=== PATIENT | male | born 1955 | race Caucasian/White ===

== ENCOUNTER 2021-07-27 18:13 | Emergency (ER) | payer OTHER, SELFPAY ==
--- NOTE | 2021-07-27 18:33 | ED_ITS ---
HPI - Alcohol General Chief Complaint: ETOH/Substance Use <GEOVANI Duran Last Filed: 07/28/21 01:32> Stated Complaint: etoh,requesting detox <GEOVANI Duran Last Filed: 07/28/21 01:32> Time Seen by Provider: 07/27/21 18:22 <GEOVANI Duran Last Filed: 07/28/21 01:32> Source: patient and EMS <GEOVANI Duran Last Filed: 07/28/21 01:32> Mode of arrival: EMS <GEOVANI Duran Last Filed: 07/28/21 01:32> History of Present Illness HPI narrative: 65-year-old male with past medical history of ETOH abuse BIBA for ETOH intoxication, EMS called by roommates for concern of patient's ETOH consumption, & need for detox. Patient requesting detox at this time. 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 Denies illicit drugs. Denies SI/HI. Denies recent fall/injury, abdominal pain, nausea/vomiting, CP/SOB <GEOVANI Duran Last Filed: 07/28/21 01:32> MD complaint: alcohol intoxication <GEOVANI Duran Last Filed: 07/28/21 01:32> Related Data Home Medications: Previous Rx's Medication Instructions Recorded amlodipine 5 mg tablet 5 mg PO DAILY #14 tab 07/28/21 <GEOVANI Duran Last Filed: 07/28/21 01:32> Allergies/Adverse Reactions: Allergies Allergy/AdvReac Type Severity Reaction Status Date / Time No Known Allergies Allergy Verified 07/27/21 18:37 <GEOVANI Duran Last Filed: 07/28/21 01:32> Review of Systems Review of Systems: Constitutional: No Fever ENT/Mouth: No Ear Pain, No Nasal Congestion, No sore throat Eyes: No Eye Pain, No Swelling, No Vision Changes Cardiovascular: No Chest Pain, No SOB Respiratory: No Cough, No Dyspnea Gastrointestinal: No Nausea, No Vomiting, No Abdominal pain Genitourinary: No Dysuria, No Urinary Frequency, No Hematuria Musculoskeletal: No joint pain, No Myalgias, No Joint Swelling Skin: No Skin Lesions, No rash Neuro: No Weakness, No Headache Psych: No Anxiety/Panic, No Depression, No SI/HI <GEOVANI Duran - Last Filed: 07/28/21 01:32> Yes all other systems are reviewed and are negative <GEOVANI Duran - Last Filed: 07/28/21 01:32> [facility] Past Medical History Attestation statement: The following information was validated with the patient. <GEOVANI Duran Last Filed: 07/28/21 01:32> Medical History: Medical History (Updated 07/29/21 @ 00:02 by Mehdi Mercado) Patient denies medical problems <GEOVANI Duran - Last Filed: 07/28/21 01:32> Social History Social History: Social History Advance Directives: No Advance Directives Information Provided: Yes <GEOVANI Duran Last Filed: 07/28/21 01:32> Physical Exam Vital Signs: Vital Signs: Last Vital Signs Temp 98.2 F 07/28/21 14:36 Pulse 81 07/28/21 14:36 Resp 07/28/21 14:36 BP 130/83 07/28/21 14:36 Pulse Ox 92 07/28/21 14:36 Body Mass Index 22.1 <GEOVANI Duran - Last Filed: 07/28/21 01:32> Vital Signs: Last Vital Signs Temp 98.2 F 07/28/21 14:36 Pulse 81 07/28/21 14:36 Resp 07/28/21 14:36 BP 130/83 07/28/21 14:36 Pulse Ox 92 07/28/21 14:36 Body Mass Index 22.1 <GEOVANI Aguilar - Last Filed: 07/29/21 08:34> Const: Other: + ETOH odor on breath. Intoxicated <GEOVANI Duran - Last Filed: 07/28/21 01:32> General: cooperative, no acute distress, well developed, alert and awake <GEOVANI Duran Last Filed: 07/28/21 01:32> Orientation/consciousness: patient oriented x3 <GEOVANI Duran Last Filed: 07/28/21 01:32> Limitations: no limitations <GEOVANI Duran Last Filed: 07/28/21 01:32> HENMT: Other: Old/healing abrasion noted to left scalp <Fern Adam MI - Last Filed: 07/28/21 01:32> Head: Yes normal to inspection <Fern Adam MI - Last Filed: 07/28/21 01:32> Ears: hearing grossly normal bilaterally <Fern Adam MI - Last Filed: 07/28/21 01:32> General nose exam: Normal external nose present <Fern Adam MI - Last Filed: 07/28/21 01:32> Face and sinus: Yes normal facial exam <Fern Adam MI - Last Filed: 07/28/21 01:32> Eyes: General: appearance normal, both eyes and all related structures <Fern Adam MI - Last Filed: 07/28/21 01:32> Pupils: Equal, round and reactive pupils present <Fern Adam MI - Last Filed: 07/28/21 01:32> EOM: EOMs intact bilaterally <Fern Adam MI - Last Filed: 07/28/21 01:32> Neck: Neck: Yes normal visual inspection and Yes no meningeal signs <Fern Adam MI - Last Filed: 07/28/21 01:32> Resp: Effort & Inspection: normal respiratory effort <Fern Adam MI - Last Filed: 07/28/21 01:32> Auscultation: clear to auscultation bilaterally, no crackles and no wheezes <Fern Adam MI - Last Filed: 07/28/21 01:32> Cardio: Rate: regular rate <Fern Adam MI - Last Filed: 07/28/21 01:32> Heart sounds: S1 normal heart sound present and S2 normal heart sound present <Fern Adam MI - Last Filed: 07/28/21 01:32> GI: Inspection: Yes normal to inspection <Fern Adam MI - Last Filed: 07/28/21 01:32> Palpation (GI): Soft to palpation, nontender, no guarding and not rigid <Fern Adam MI - Last Filed: 07/28/21 01:32> Skin: Rashes: no rashes <Fern Adam MI - Last Filed: 07/28/21 01:32> Neuro: General: patient oriented x3, tone normal, moves all extremities, no meningeal signs, no focal motor deficits and CN's II-XI intact bilaterally <GEOVANI Duran - Last Filed: 07/28/21 01:32> Cranial nerves: Yes Equal, round and reactive pupils present <GEOVANI Duran Last Filed: 07/28/21 01:32> Motor exam (neuro): 5/5 motor strength present throughout <GEOVANI Durna Last Filed: 07/28/21 01:32> Extrem: General: Yes normal to inspection <GEOVANI Duran Last Filed: 07/28/21 01:32> Course Course Course Narrative: -1928--bilirubin/AST/ALT elevated likely chronic from ETOH abuse. -ethanol 325 -2039--patient was evaluated by learning coach, no available detox beds tonight, hopefully in the morning. Plan is for patient to spend the night in the ED pending detox bed search. P.rscott Lo ordered for withdrawal symptoms -0200--ED care transferred to Dr. Portillo pending detox bed in the morning <GEOVANI Duran - Last Filed: 07/28/21 01:32> Reevaluation(s) Reevaluation #1: Patient did not get a detox bed. Patient blood pressure improved after blood pressure medication. Patient is not any distress. Patient is not in any alcohol withdrawal. Patient will be discharged home with blood pressure medication and follow up with A detox service for program and his PCP. <GEOVANI Aguilar - Last Filed: 07/29/21 08:34> Time: 15:58 <GEOVANI Aguilar - Last Filed: 07/29/21 08:34> MDM - Alcohol MDM Narrative Medical decision making narrative: 65-year-old male with past medical history of ETOH abuse BIBA for ETOH intoxication, EMS called by roommates for concern of patient's ETOH consumption, & need for detox. Patient requesting detox at this time. On exam mildly hypertensive, NAD, EtOH odor on breath/intoxicated. Will obtain baseline labs and have learning coach evaluate patient for detox Will observe and reassess for clinical sobriety <GEOVANI Duran - Last Filed: 07/28/21 01:32> Medical Records Attestation: I reviewed the patient's medical records. <GEOVANI Duran - Last Filed: 07/28/21 01:32> Lab Data Attestation: I reviewed the patient's lab results. <GEOVANI Duran - Last Filed: 07/28/21 01:32> Result diagrams: : 07/27/21 18:51 07/27/21 18:51 <GEOVANI Duran - Last Filed: 07/28/21 01:32> Labs: Lab Results 07/27/21 07/27/21 07/27/21 Range/Units 18:51 18:51 18:51 WBC 7.8 (4.8-10.8) X10*3/uL RBC 3.82 L (4.60-5.80) X10*6/uL Hgb 15.9 (14.0-18.0) g/dl Hct 43.1 (42-52) % MCV 112.8 H (80-98) fL MCH 41.6 H (27.0-33.0) pg MCHC 36.9 H (31.0-36.0) g/dl RDW 15.0 (11.0-16.0) % Plt Count 155 L (160-400) X10*3/uL MPV 9.4 (9.4-12.4) fL Immature Gran % (Auto) 0.3 (0.0-0.4) % Neut % (Auto) 66.3 (45-73) % Lymph % (Auto) 21.3 (20-40) % Divide % (Auto) 10.3 (2-11) % Eos % (Auto) 1.2 (0-4) % Baso % (Auto) 0.6 (0-2) % Lymph # (Auto) 1.7 (1.2-4.9) X10*3/uL Divide # (Auto) 0.8 (0.1-1.2) X10*3/uL Eos # (Auto) 0.1 (0.0-0.4) X10*3/uL Baso # (Auto) 0.1 (0.0-0.2) X10*3/uL Abs Immat Gran (auto) 0.02 (0.00-0.03) X10*3/uL Absolute Neuts (auto) 5.2 (2.0-8.3) X10*3/uL Absolute Nucleated RBC 0.000 (0.0-0.012) X10*3/uL Nucleated RBC % (auto) 0.0 (0.0-0.2) /100WBC Smear Path Review SEE NOTE Sodium 140 (135-145) mmol/L Potassium 3.4 (3.3-5.1) mmol/L Chloride 97 (96-108) mmol/L Carbon Dioxide 32 H (22-29) mmol/L Anion Gap 14 (12-20) BUN 6 L (9-16) mg/dL Creatinine 0.96 (0.5-1.4) mg/dL Estim Creat Clear Calc 61.5 Estimated GFR > 60 Random Glucose 110 (60-115) mg/dL Calcium 8.6 (8.4-10.2) mg/dL Magnesium 1.7 (1.6-2.6) mg/dL Total Bilirubin 1.6 H (0.0-1.0) mg/dL Direct Bilirubin 0.8 H (0.0-0.5) mg/dL AST 95 H (5-37) U/L ALT 41 H (0-40) U/L Alkaline Phosphatase 161 H (39-117) U/L Total Protein 6.3 L (6.5-8.0) g/dL Albumin 3.3 L (3.5-5.0) g/dL Lipase 24 (8-78) U/L Urine Opiates Screen (Not Detect) Urine Fentanyl Screen (Not Detect) Ur Barbiturates Screen (Not Detect) Ur Phencyclidine Scrn (Not Detect) Ur Amphetamines Screen (Not Detect) U Benzodiazepines Scrn (Not Detect) Urine Cocaine Screen (Not Detect) U Marijuana (THC) Screen (Not Detect) Ethyl Alcohol 325 H* mg/dL COVID-19 (SUSANNE) (Negative) COVID-19 Clin Com 07/28/21 07/28/21 Range/Units 08:41 09:38 WBC (4.8-10.8) X10*3/uL RBC (4.60-5.80) X10*6/uL Hgb (14.0-18.0) g/dl Hct (42-52) % MCV (80-98) fL MCH (27.0-33.0) pg MCHC (31.0-36.0) g/dl RDW (11.0-16.0) % Plt Count (160-400) X10*3/uL MPV (9.4-12.4) fL Immature Gran % (Auto) (0.0-0.4) % Neut % (Auto) (45-73) % Lymph % (Auto) (20-40) % Divide % (Auto) (2-11) % Eos % (Auto) (0-4) % Baso % (Auto) (0-2) % Lymph # (Auto) (1.2-4.9) X10*3/uL Divide # (Auto) (0.1-1.2) X10*3/uL Eos # (Auto) (0.0-0.4) X10*3/uL Baso # (Auto) (0.0-0.2) X10*3/uL Abs Immat Gran (auto) (0.00-0.03) X10*3/uL Absolute Neuts (auto) (2.0-8.3) X10*3/uL Absolute Nucleated RBC (0.0-0.012) X10*3/uL Nucleated RBC % (auto) (0.0-0.2) /100WBC Smear Path Review Sodium (135-145) mmol/L Potassium (3.3-5.1) mmol/L Chloride (96-108) mmol/L Carbon Dioxide (22-29) mmol/L Anion Gap (12-20) BUN (9-16) mg/dL Creatinine (0.5-1.4) mg/dL Estim Creat Clear Calc Estimated GFR Random Glucose (60-115) mg/dL Calcium (8.4-10.2) mg/dL Magnesium (1.6-2.6) mg/dL Total Bilirubin (0.0-1.0) mg/dL Direct Bilirubin (0.0-0.5) mg/dL AST (5-37) U/L ALT (0-40) U/L Alkaline Phosphatase (39-117) U/L Total Protein (6.5-8.0) g/dL Albumin (3.5-5.0) g/dL Lipase (8-78) U/L Urine Opiates Screen Not Detected (Not Detect) Urine Fentanyl Screen Not Detected (Not Detect) Ur Barbiturates Screen Not Detected (Not Detect) Ur Phencyclidine Scrn Not Detected (Not Detect) Ur Amphetamines Screen Not Detected (Not Detect) U Benzodiazepines Scrn Not Detected (Not Detect) Urine Cocaine Screen Not Detected (Not Detect) U Marijuana (THC) Screen Not Detected (Not Detect) Ethyl Alcohol mg/dL COVID-19 (SUSANNE) Negative (Negative) COVID-19 Clin Com See Note <GEOVANI Duran - Last Filed: 07/28/21 01:32> Lab Results 07/27/21 07/27/21 07/27/21 Range/Units 18:51 18:51 18:51 WBC 7.8 (4.8-10.8) X10*3/uL RBC 3.82 L (4.60-5.80) X10*6/uL Hgb 15.9 (14.0-18.0) g/dl Hct 43.1 (42-52) % MCV 112.8 H (80-98) fL MCH 41.6 H (27.0-33.0) pg MCHC 36.9 H (31.0-36.0) g/dl RDW 15.0 (11.0-16.0) % Plt Count 155 L (160-400) X10*3/uL MPV 9.4 (9.4-12.4) fL Immature Gran % (Auto) 0.3 (0.0-0.4) % Neut % (Auto) 66.3 (45-73) % Lymph % (Auto) 21.3 (20-40) % Divide % (Auto) 10.3 (2-11) % Eos % (Auto) 1.2 (0-4) % Baso % (Auto) 0.6 (0-2) % Lymph # (Auto) 1.7 (1.2-4.9) X10*3/uL Divide # (Auto) 0.8 (0.1-1.2) X10*3/uL Eos # (Auto) 0.1 (0.0-0.4) X10*3/uL Baso # (Auto) 0.1 (0.0-0.2) X10*3/uL Abs Immat Gran (auto) 0.02 (0.00-0.03) X10*3/uL Absolute Neuts (auto) 5.2 (2.0-8.3) X10*3/uL Absolute Nucleated RBC 0.000 (0.0-0.012) X10*3/uL Nucleated RBC % (auto) 0.0 (0.0-0.2) /100WBC Smear Path Review SEE NOTE Sodium 140 (135-145) mmol/L Potassium 3.4 (3.3-5.1) mmol/L Chloride 97 (96-108) mmol/L Carbon Dioxide 32 H (22-29) mmol/L Anion Gap 14 (12-20) BUN 6 L (9-16) mg/dL Creatinine 0.96 (0.5-1.4) mg/dL Estim Creat Clear Calc 61.5 Estimated GFR > 60 Random Glucose 110 (60-115) mg/dL Calcium 8.6 (8.4-10.2) mg/dL Magnesium 1.7 (1.6-2.6) mg/dL Total Bilirubin 1.6 H (0.0-1.0) mg/dL Direct Bilirubin 0.8 H (0.0-0.5) mg/dL AST 95 H (5-37) U/L ALT 41 H (0-40) U/L Alkaline Phosphatase 161 H (39-117) U/L Total Protein 6.3 L (6.5-8.0) g/dL Albumin 3.3 L (3.5-5.0) g/dL Lipase 24 (8-78) U/L Urine Opiates Screen (Not Detect) Urine Fentanyl Screen (Not Detect) Ur Barbiturates Screen (Not Detect) Ur Phencyclidine Scrn (Not Detect) Ur Amphetamines Screen (Not Detect) U Benzodiazepines Scrn (Not Detect) Urine Cocaine Screen (Not Detect) U Marijuana (THC) Screen (Not Detect) Ethyl Alcohol 325 H* mg/dL COVID-19 (SUSANNE) (Negative) COVID-19 Clin Com 07/28/21 07/28/21 Range/Units 08:41 09:38 WBC (4.8-10.8) X10*3/uL RBC (4.60-5.80) X10*6/uL Hgb (14.0-18.0) g/dl Hct (42-52) % MCV (80-98) fL MCH (27.0-33.0) pg MCHC (31.0-36.0) g/dl RDW (11.0-16.0) % Plt Count (160-400) X10*3/uL MPV (9.4-12.4) fL Immature Gran % (Auto) (0.0-0.4) % Neut % (Auto) (45-73) % Lymph % (Auto) (20-40) % Divide % (Auto) (2-11) % Eos % (Auto) (0-4) % Baso % (Auto) (0-2) % Lymph # (Auto) (1.2-4.9) X10*3/uL Divide # (Auto) (0.1-1.2) X10*3/uL Eos # (Auto) (0.0-0.4) X10*3/uL Baso # (Auto) (0.0-0.2) X10*3/uL Abs Immat Gran (auto) (0.00-0.03) X10*3/uL Absolute Neuts (auto) (2.0-8.3) X10*3/uL Absolute Nucleated RBC (0.0-0.012) X10*3/uL Nucleated RBC % (auto) (0.0-0.2) /100WBC Smear Path Review Sodium (135-145) mmol/L Potassium (3.3-5.1) mmol/L Chloride (96-108) mmol/L Carbon Dioxide (22-29) mmol/L Anion Gap (12-20) BUN (9-16) mg/dL Creatinine (0.5-1.4) mg/dL Estim Creat Clear Calc Estimated GFR Random Glucose (60-115) mg/dL Calcium (8.4-10.2) mg/dL Magnesium (1.6-2.6) mg/dL Total Bilirubin (0.0-1.0) mg/dL Direct Bilirubin (0.0-0.5) mg/dL AST (5-37) U/L ALT (0-40) U/L Alkaline Phosphatase (39-117) U/L Total Protein (6.5-8.0) g/dL Albumin (3.5-5.0) g/dL Lipase (8-78) U/L Urine Opiates Screen Not Detected (Not Detect) Urine Fentanyl Screen Not Detected (Not Detect) Ur Barbiturates Screen Not Detected (Not Detect) Ur Phencyclidine Scrn Not Detected (Not Detect) Ur Amphetamines Screen Not Detected (Not Detect) U Benzodiazepines Scrn Not Detected (Not Detect) Urine Cocaine Screen Not Detected (Not Detect) U Marijuana (THC) Screen Not Detected (Not Detect) Ethyl Alcohol mg/dL COVID-19 (SUSANNE) Negative (Negative) COVID-19 Clin Com See Note <GEOVANI Aguilar - Last Filed: 07/29/21 08:34> Discharge Plan Discharge Clinical Impression: Alcohol abuse, Hypertension <GEOVANI Duran - Last Filed: 07/28/21 01:32> Patient Disposition: Home, Self-Care <GEOVANI Duran - Last Filed: 07/28/21 01:32> Instructions: Abuse of Alcohol (ED), Hypertension (ED) <GEOVANI Duran Last Filed: 07/28/21 01:32> Additional Instructions: Return to the ED for any physical complaints, suicidal/homicidal ideation, physical complaints, or any other concerning symptoms. Please follow-up with [facility]. Please follow up with PCP. <GEOVANI Duran - Last Filed: 07/28/21 01:32> Prescriptions: New amlodipine 5 mg tablet 5 mg PO DAILY Qty: 14 RF: 0 <GEOVANI Duran - Last Filed: 07/28/21 01:32> Discharge Date/Time: 07/28/21 16:29 <GEOVANI Duran - Last Filed: 07/28/21 01:32> Print Language: Georgian <GEOVANI Duran Last Filed: 07/28/21 01:32>
[2021-07-27 18:37] VITALS: BP 169/98; BP 174/96; PULSE 91; PULSE 95; RESP 18; TEMP 36.8; O2SAT 94; O2SAT 97; BMI 22.1
--- NOTE | 2021-07-27 18:56 | PC.NURSE ---
[employer] football coach over to see pt - pt wants to go to detox. will notify CARE team and await medical clearance
[2021-07-27 18:57] LABS: MANUAL DIFF FLAG NO
[2021-07-27 19:09] LABS: Basophils Absolute Auto 0.1 X10*3/uL (0.0-0.2); Basophils Percent Auto 0.6 % (0-2); Eosinophils Absolute Auto 0.1 X10*3/uL (0.0-0.4); Eosinophils Percent Auto 1.2 % (0-4); Hematocrit 43.1 % (42-52); Hemoglobin 15.9 g/dl (14.0-18.0); Imm Gran Abs Auto 0.02 X10*3/uL (0.00-0.03); Imm Gran Pct Auto 0.3 % (0.0-0.4); Lymphocytes Absolute Auto 1.7 X10*3/uL (1.2-4.9); Lymphocytes Percent Auto 21.3 % (20-40); Mean Corpuscular HGB Conc 36.9 g/dl (31.0-36.0); Mean Corpuscular Hemoglobin 41.6 pg (27.0-33.0); Mean Platelet Volume 9.4 fL (9.4-12.4); Monocytes Absolute Auto 0.8 X10*3/uL (0.1-1.2); Monocytes Percent Auto 10.3 % (2-11); Neutrophils Absolute Auto 5.2 X10*3/uL (2.0-8.3); Neutrophils Percent Auto 66.3 % (45-73); Platelet Count 155 X10*3/uL (160-400); Red Blood Count 3.82 X10*6/uL (4.60-5.80); White Blood Count 7.8 X10*3/uL (4.8-10.8)
[2021-07-27 19:12] LABS: Ethanol 325 mg/dL
[2021-07-27 19:16] LABS: Alanine Aminotransferase 41 U/L (0-40); Albumin Level 3.3 g/dL (3.5-5.0); Alkaline Phosphatase 161 U/L (39-117); Anion Gap 14 (12-20); Aspartate Amino Transferase 95 U/L (5-37); Bilirubin Direct 0.8 mg/dL (0.0-0.5); Bilirubin Total 1.6 mg/dL (0.0-1.0); Blood Urea Nitrogen 6 mg/dL (9-16); Calcium 8.6 mg/dL (8.4-10.2); Carbon Dioxide 32 mmol/L (22-29); Chloride 97 mmol/L (96-108); Creatinine Clr Calc Pharmacy 61.5; Estimated Glomerular Filt Rate > 60; Glucose Random 110 mg/dL (60-115); Lipase 24 U/L (8-78); Magnesium 1.7 mg/dL (1.6-2.6); Potassium 3.4 mmol/L (3.3-5.1); Sodium 140 mmol/L (135-145); Total Protein 6.3 g/dL (6.5-8.0)
--- NOTE | 2021-07-27 19:31 | PC.NURSE ---
Noy -sister - pt oked to talk to her
[2021-07-27 19:41] LABS: Mean Corpuscular Volume 112.8 fL (80-98)
--- NOTE | 2021-07-27 20:09 | MHC.RECOVSUP ---
? Reason for consult Support o Current location: ED13 o Identified substance use concern: alcohol - Seeking ATS (detox) - Support ? Intervention: <del>o</del> <del>ATS</del> <del>bed</del> <del>search</del> <del>started/completed/in</del> <del>process</del> <del>o</del> <del>MAT</del> <del>started</del> <del>or</del> <del>to</del> <del>be</del> <del>started</del> o Community resources provided o Harm reduction discussion ? Plan: <del>o</del> <del>Referral</del> <del>to</del> <del>[facility]</del> <del>o</del> <del>Bed</del> <del>search</del> <del>in</del> <del>progress</del> <del>to</del> o Follow up tomorrow <del>o</del> <del>Patient</del> <del>awaiting</del> <del>crisis</del> <del>evaluation</del> o Patient to follow up with [facility] after discharge ? Additional information: Patient seeking detox bot not medical clear at the moment.
[2021-07-27 22:09] VITALS: BP 200/126; PULSE 91
[2021-07-27 22:17] VITALS: BP 174/102; PULSE 91; RESP 16; O2SAT 99
[2021-07-28] VITALS (7 sets, daily range): BP systolic 130–188; BP diastolic 83–108; PULSE 78–93; RESP 15–19; TEMP 36.6–36.8; O2SAT 92–100
[2021-07-28 09:08] LABS: COVID-19 Test Negative (Negative)
--- NOTE | 2021-07-28 09:34 | PC.NURSE ---
Pt BP has been trending in 170s/180s. GEOVANI gonzales was notified before transfer to detox facility. Plan to medicate before transfer.
[2021-07-28 10:08] LABS: Amphetamine Screen Urine Not Detected (Not Detect); Barbiturates, Urine Not Detected (Not Detect); Benzodiazepines Screen Urine Not Detected (Not Detect); Cannabinoid Screen Urine Not Detected (Not Detect); Cocaine Screen Urine Not Detected (Not Detect); Fentanyl, urine Not Detected (Not Detect); Opiate Screen Urine Not Detected (Not Detect); Phencyclidine Screen Urine Not Detected (Not Detect)
--- NOTE | 2021-07-28 10:38 | ECG_ITS ---
Test Reason : ETOH Blood Pressure : / mmHG Vent. Rate : 085 BPM Atrial Rate : 085 BPM P-R Int : 154 ms QRS Dur : 080 ms QT Int : 380 ms P-R-T Axes : 075 -64 063 degrees QTc Int : 452 ms Normal sinus rhythm Left axis deviation Pulmonary disease pattern Septal infarct , age undetermined Abnormal ECG No previous ECGs available Referred By: Paul Amin Electronically Signed By:DANNY JEAN BAPTISTE
[2021-07-28] MEDS: amLODIPine Besylate 5 MG TABLET PO (10:46)
[2021-07-28] MEDS: LORazepam 1 MG TABLET PO (10:46)
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
--- NOTE | 2021-07-28 12:40 | MHC.RECOVSUP ---
Recovery Support note: Patient is a 65 year old Latvian speaking male who presented [place] [facility] [place] seeking detox. Patient reports daily alcohol consumption. Patient remained in the ED overnight as no detox beds were available. Patient reported to this freelance copywriter that he wants to try and do it on my own. This freelance copywriter discussed ATS and patient reports [facility]. This freelance copywriter spoke with Cathleen at the [facility] ([phone] ex [phone]) and patient information has been sent (fax: [phone]) for review. This freelance copywriter is currently awaiting follow up from the [facility].
--- NOTE | 2021-07-28 12:54 | PC.NURSE ---
Pt's BP remains elevated after po medications. Paul OLIVO aware and plans to order additional BP medications po.
[2021-07-28] MEDS: cloNIDine HCL 0.2 MG TABLET PO (13:22)
--- NOTE | 2021-07-28 14:08 | MHC.RECOVSUP ---
Recovery Support note: [facility] and [facility] not be [facility] until Monday. Patient not willing to travel to [place] for treatment. [facility] reports no beds at this time, [facility] are also at capacity. Discussed situation with patient. Patient plans to discharge and [facility] with [facility]. Patient is requesting assistance arranging transportation home. Discussed case with patient's ED provider. This jingle writer available to arrange transportation for patient via [employer].
--- NOTE | 2021-07-28 16:28 | PC.NURSE ---
Ride arranged for patient. Attempt at calling family. Pt states that there is someone at home who can help him. BP trending down. Pt ambulated wtih steady gait to waiting room with recovery agent dustin.
== END 2021-07-28 16:29 | disposition home or self-care (01) ==
PROVIDERS: Physician Assistant; Emergency Provider Student in an Organized Health Care Education/Training Program
DX: F10.129 Alcohol abuse with intoxication, unspecified (principal); Y90.8 Blood alcohol level of 240 mg/100 ml or more; I10 Essential (primary) hypertension; Z20.822 Contact with and (suspected) exposure to COVID-19; Z79.899 Other long term (current) drug therapy
CPT/HCPCS: 36415; 80048; 80076; 80307; 82077; 83690; 83735; 85025; 87635; 93005; 99285